=== PATIENT | female | born 1970 | race Caucasian/White ===

== ENCOUNTER 2016-06-06 17:18 | Emergency (ER) | payer OTHER ==
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
[~2016-06-06 17:18] MED LIST: ATARAX PO; AUGMENTIN875 M1 PO; CYCLOBENZAPRINE PO; DIAZEPAM PO; FLEXERIL10 MG PO; FLOVENT HFA12 G2; FLUTICASONE SPRAY; HYDROCODON-ACE1 EAC7 PO; HYDROCODONE PO; HYDROXYZINE PO; K-DUR20 ME1 PO; LEXAPRO PO; MIRTAZAPINE PO; MIRTAZAPINE7.5 MG PO; MOBIC PO; MOBIC15 MG PO; NEURONTIN PO; NEURONTIN600 MG PO; NORCO1 TAB 10/3 PO; TAMOXIFEN CITRA20 MG PO; TAMOXIFEN PO; ZOFRAN ODT4 MG PO
[2016-10-15] MEDS ORDERED: NORCO 7.5-3251 EACH PO (10:19)
[2016-10-15] MEDS ORDERED: CARAFATE1 GM PO (10:20)
== END 2016-06-06 18:15 | disposition home or self-care (01) ==
LOC: SED 17:18
DX: S40.012A Contusion of left shoulder, initial encounter (principal); S20.212A Contusion of left front wall of thorax, initial encounter; F17.210 Nicotine dependence, cigarettes, uncomplicated; Z85.3 Personal history of malignant neoplasm of breast; Z79.899 Other long term (current) drug therapy; V49.40XA Driver injured in collision with unspecified motor vehicles in traffic accident, initial encounter; Y92.410 Unspecified street and highway as the place of occurrence of the external cause
CPT/HCPCS: 71100; 72100; 73030; 84703; 99281; 99284

== ENCOUNTER 2016-08-14 11:46 | Emergency (ER) | payer OTHER ==
--- NOTE | ~2016-08-14 | CT2 ---
[facility] A Service of [facility] RADIOLOGY TEXT RESULTS PATIENT: HUY RYDER LOCATION: SED : 72 UNIT #: [id number] AGE: [address]: José Levin MD SEX: F ORDER DR: [id number] [address] [address] [id number] E MR#: [id number] Acc #: [id number] NAME: HUY RYDER : 1970 SEX: F STUDY DATE/TIME: 08/14/2016 14:25 UNIT: SED ROOM: STUDY DESCRIPTION: CT Abd and Pelv W Cont Attending Physician: José Levin M.D. Ordering Physician: José Levin M.D. Primary Care Physician: Funmilayo Minor Aprn MEDICAL IMAGING REPORT This report is preliminary unless electronic signature is present. EXAM CT abdomen and pelvis with contrast DATE 08/14/2016 HISTORY Left sided abdominal pain with rectal bleeding since yesterday. Previous history of breast cancer with bilateral mastectomy. Previous cholecystectomy. Gastroesophageal reflux disease. COMPARISON CT abdomen and pelvis with contrast 01/24/2016. PROCEDURE 5 mm axial images from the lung bases through the lesser trochanters after intravenous and enteric contrast administration. Sagittal and coronal reformatted images were obtained. This CT exam was performed with one or more of the following radiation dose reduction techniques: Automatic exposure control, adjustment of mA and/or kV according to patient size, and iterative reconstruction. FINDINGS ABDOMEN FINDINGS: The appendix is normal. The bowel appears nonobstructive. No focal bowel inflammatory changes are identified. No free air, free fluid, or abscess is seen. A few shotty retroperitoneal left periaortic lymph nodes appear stable since 01/24/2016 are favored to represent benign reactive changes. Lung bases are clear. Cholecystectomy. Borderline hepatic steatosis. The spleen, pancreas, adrenals and kidneys are within normal limits. There is questionable subtle proximal to mid right ureteric wall thickening and enhancement and stranding, which could represent active STS. [facility] A Service of [facility] RADIOLOGY TEXT RESULTS PATIENT: HUY RYDER LOCATION: SED : 72 UNIT #: [id number] AGE: [address]: José Levin MD SEX: F ORDER DR: inflammation. No evidence of hydronephrosis or ureteral obstruction. PELVIS FINDINGS: Urinary bladder, uterus and rectum are within normal limits. No adenopathy or free fluid. IMPRESSION 1. Osseous structures are within normal limits. There is questionable proximal to mid right ureteral wall thickening and/or inflammatory stranding. Findings could represent changes of ureteritis. However, there is no evidence of hydronephrosis, hydroureter, or perinephric inflammation or ureteral obstruction. Correlate with clinical symptoms. It is recognized that this is contralateral to the patient's reported side of pain (reported left side abdominal pain). 2. Otherwise, there are no acute findings in the abdomen or pelvis. 3. Cholecystectomy. 4. Hepatic steatosis. 5. Normal appendix. Dictated by... Barbara Galan M.D. THIS IS AN ELECTRONICALLY VERIFIED REPORT Barbara Galan M.D. at 08/15/2016 10:02 AM VICKEY/salomon TD: 08/14/2016 16:03 JOB #: [id number] MEDICAL IMAGING REPORT Page 1 of 1
[2016-08-14 13:35] LABS: BASOPHIL# 0.1 X10e3 (0-0.3); BASOPHIL% 0.9 % (0-2.5); EOSINOPHIL# 0.2 X10e3 (0-0.7); EOSINOPHIL% 1.4 % (0.0-7.0); HEMATOCRIT 36.6 % (35.0-45.0); HEMOGLOBIN 11.8 gm/dL (12.0-16.0); LYMPHOCYTE# 2.3 X10e3 (1.0-3.5); LYMPHOCYTE% 19.5 % (17.0-45.0); MEAN CELL VOLUME 84.1 FL (83-96); MEAN CORPUSCULAR HEMOGLOBIN 27.2 PG (28-34); MEAN CORPUSCULAR HGB CONC 32.3 g/dL (30-36); MEAN PLATELET VOLUME 7.5 FL (6.5-11.5); MONOCYTE# 0.6 X10e3 (0-1.0); MONOCYTE% 4.8 % (3.0-12.0); NEUTROPHIL# 8.5 X10e3 (1.5-7.1); NEUTROPHIL% 73.4 % (40-75); PLATELET COUNT 354 X10e3 (140-420); RED BLOOD COUNT 4.35 X10e (3.90-5.30); RED CELL DISTRIBUTION WIDTH 16.4 % (11.0-15.5); WHITE BLOOD COUNT 11.6 X10e3 (4.0-10.5)
[2016-08-14 13:38] LABS: DIFF IND NO
[2016-08-14 13:45] LABS: ALBUMIN SERUM 3.3 g/dL (3.5-5.0); ALKALINE PHOSPHATASE 97 U/L (32-92); ALT (SGPT) 15 U/L (10-40); AST (SGOT) 21 U/L (10-42); BILIRUBIN, DIRECT <0.1 mg/dL (0.0-0.2); BILIRUBIN,INDIRECT 0.2 mg/dL (0.0-0.9); BILIRUBIN,TOTAL 0.3 mg/dL (0.2-2.0); BLOOD UREA NITROGEN 8 mg/dL (9-23); BUN/CREATININE RATIO 13.33; CALCIUM SERUM 8.6 mg/dL (8.4-10.2); CARBON DIOXIDE 26 mmol/L (22-31); CHLORIDE 106 mmol/L (100-111); CREATININE SERUM 0.6 mg/dL (0.6-1.4); GLOM FILT RATE Estimated 111.6 mL/min (>60); GLUCOSE FASTING 142 mg/dL (70-110); POTASSIUM 3.6 mmol/L (3.5-5.1); PROTEIN TOTAL SERUM 6.9 g/dL (6.0-8.3); SODIUM 139 mmol/L (135-145)
[2016-10-15] MEDS ORDERED: NORCO 7.5-3251 EACH PO (10:19)
[2016-10-15] MEDS ORDERED: CARAFATE1 GM PO (10:20)
== END 2016-08-14 16:02 | disposition home or self-care (01) ==
LOC: SED 11:46
PROVIDERS: Emergency Medicine
DX: K57.92 Diverticulitis of intestine, part unspecified, without perforation or abscess without bleeding (principal); T40.1X1A Poisoning by heroin, accidental (unintentional), initial encounter; K21.9 Gastro-esophageal reflux disease without esophagitis; Z90.49 Acquired absence of other specified parts of digestive tract; F17.210 Nicotine dependence, cigarettes, uncomplicated; Y92.89 Other specified places as the place of occurrence of the external cause
CPT/HCPCS: 36415; 74177; 80048; 80076; 82270; 84703; 85025; 96374; 96375; 99284; C9113; J2270; J2405; Q9967

== ENCOUNTER → 2016-10-18 | Day surgery (SDC) | payer OTHER ==
[~2016-10-18] MED LIST changes: +CARAFATE1 GM PO; +NORCO 7.5-3251 EACH PO
--- NOTE | ~2016-10-18 | OR ---
Unit #: [id number] #: [id number] Patient: HUY RYDER [id number] [address] [place], [place] [address] [id number] O MR#: [id number] NAME: HUY RYDER ROOM: Date of Procedure: 10/18/2016 Admission Date: 10/18/2016 Surgeon: Mayank Busch Jr., M.D. : 1970 Attending Physician: Mayank Busch Jr., M.D. Primary Care Physician: Funmilayo Minor, Die Maintenance Technician OPERATIVE REPORT INDICATION FOR PROCEDURE The patient is a 45-year-old white female, who is approximately 6 months status post laparoscopic cholecystectomy. She has been having a lot of pain in the upper abdomen especially in the area of her port site and there was nodularity present, felt to probably represent a port site hernia. She is brought in this time for exploration of this and repair of port site hernia found. PREOPERATIVE DIAGNOSIS Probable incarcerated port site, right upper quadrant abdominal wall area. POSTOPERATIVE DIAGNOSIS Probable incarcerated port site, right upper quadrant abdominal wall area, noting a small defect approximately 1 cm to 2 cm in diameter with some incarcerated fatty tissue within it. ANESTHESIA General with LMA and 0.5% Marcaine with epinephrine locally. PROCEDURE PERFORMED Reduction and repair of port site hernia. DESCRIPTION OF PROCEDURE The patient was positioned in supine position. After being anesthetized, she was prepped and draped in routine fashion for exploration of the right upper quadrant abdominal wall area. An incision was made through the scar from her previous surgery and extended over a total of approximately 3 inches in length. This was carried down through subcutaneous tissue down to the fascia of the muscle, where there was some fatty tissue coming through a small incisional hernia. This fatty tissue was then removed. The remainder was reduced back into the preperitoneal space and the fascia was cleaned and there was only one defect present. The defect was closed with interrupted 0 Ethibond sutures and the wound was then irrigated and after hemostasis achieved with Bovie cautery, the deeper subcutaneous tissue was approximated with interrupted 2-0 Vicryl sutures. The subcutaneous tissue approximated with interrupted 3-0 Vicryl sutures. Skin edges approximated with stainless-steel skin clips and skin stapling device. Sterile dressings were applied externally. Estimated blood loss less than 20 mL. The patient received less than 1000 mL crystalloid solution during the procedure. Sponges and instrument counts were correct x3. No drains used. No complications. The patient was taken to the Unit #: [id number] #: [id number] [facility] with stable vital signs in satisfactory condition. Dictated by... Mayank Busch Jr., M.D. JOSELITO/leslie TD: 10/18/2016 20:23 JOB #: [id number] OPERATIVE REPORT Page 1 of 1 X Mayank Busch MD X PROCEDURE OPERATIVE NOTE
== END | disposition home or self-care (01) ==
LOC: CSUR 05:59
DX: K43.2 Incisional hernia without obstruction or gangrene (principal); F32.9 Major depressive disorder, single episode, unspecified; M19.90 Unspecified osteoarthritis, unspecified site; E66.9 Obesity, unspecified; Z68.37 Body mass index [BMI] 37.0-37.9, adult; Z87.891 Personal history of nicotine dependence; Z85.3 Personal history of malignant neoplasm of breast; Z77.22 Contact with and (suspected) exposure to environmental tobacco smoke (acute) (chronic); Z79.51 Long term (current) use of inhaled steroids; Z79.899 Other long term (current) drug therapy; Z90.49 Acquired absence of other specified parts of digestive tract; Z98.890 Other specified postprocedural states; Z90.10 Acquired absence of unspecified breast and nipple
CPT/HCPCS: J0360; J0690; J1100; J1170; J1885; J2250; J2405; J3010; J3370